=== PATIENT | female | born 1955 | race Caucasian/White ===

== ENCOUNTER 2019-11-29 12:17 | Day surgery (SDC) | payer OTHER ==
[~2019-11-29] VITALS: Ht 167.6 cm; Wt 63.3 kg
[~2019-11-29 12:17] MED LIST: ACYC400; ADAL40PEN; ETOD400; LEVSOD88; PARO20
--- NOTE | 2019-11-29 14:31 | NUR ---
11/29/19 1431 [place] [place] 30 ML NACL INJECTED FOR POLYP REMOVAL.
== END 2019-11-29 14:27 | disposition home or self-care (01) ==
LOC: ORSCSDS 12:17
PROVIDERS: Internal Medicine Gastroenterology
PROC: 0DBK8ZX Excision of Ascending Colon, Via Natural or Artificial Opening Endoscopic, Diagnostic (ICD-10-PCS; principal; 2019-11-29 13:30)
PROC: 0DBH8ZX Excision of Cecum, Via Natural or Artificial Opening Endoscopic, Diagnostic (ICD-10-PCS; principal; 2019-11-29 13:30)
DX: Z12.11 Encounter for screening for malignant neoplasm of colon (principal); Z86.010 Personal history of colon polyps; D12.0 Benign neoplasm of cecum; D12.2 Benign neoplasm of ascending colon; K57.30 Diverticulosis of large intestine without perforation or abscess without bleeding; K64.8 Other hemorrhoids; E03.9 Hypothyroidism, unspecified; Z79.899 Other long term (current) drug therapy
CPT/HCPCS: 88305; J2405; J2704; J7120

== ENCOUNTER → 2021-12-08 | Outpatient (CLI) | payer MEDICARE ==
[2021-12-08 15:22] LABS: BASOPHILS ABSOLUTE AUTO 0.06 K/mm3 (0.00-0.23); BASOPHILS PERCENT AUTO 1 % (0-2); EOSINOPHILS ABSOLUTE AUTO 0.16 K/mm3 (0.00-0.68); EOSINOPHILS PERCENT AUTO 1 % (0-6); Hematocrit 42.2 % (33.0-51.0); Hemoglobin 14.4 g/dL (11.5-16.0); IMMATURE GRAN ABSOLUTE AUTO 0.03 K/mm3 (0.00-0.10); IMMATURE GRAN PERCENT AUTO 0 % (0-1); LYMPHOCYTES ABSOLUTE AUTO 2.55 K/mm3 (0.84-5.20); LYMPHOCYTES PERCENT AUTO 21 % (21-46); MONOCYTES ABSOLUTE AUTO 0.95 K/mm3 (0.16-1.47); MONOCYTES PERCENT AUTO 8 % (4-13); Mean Corpuscular HGB 31.7 pg (26.0-34.0); Mean Corpuscular HGB Conc 34.1 g/dL (31.5-36.5); Mean Corpuscular Volume 93 fL (80-100); Mean Platelet Volume 10.9 fL (9.1-12.4); NEUTROPHILS ABSOLUTE AUTO 8.36 K/mm3 (1.96-9.15); NEUTROPHILS PERCENT AUTO 69 % (41-73); Platelet Count 305 K/mm3 (150-400); RDW Coefficient Variation 13.7 % (11.7-14.2); RDW Standard Deviation 46.5 fL (35.1-46.3); Red Blood Cell Count 4.54 M/mm3 (3.80-5.20); White Blood Cell Count 12.11 K/mm3 (4.00-11.30)
[2021-12-08 15:33] LABS: Albumin, Blood 3.4 g/dL (3.4-5.0); Albumin/Globulin Ratio 0.8 (0.8-1.8); Bilirubin, Total 0.5 mg/dL (0.1-1.0); Bun/Creatinine Ratio 23.9 (12.0-20.0); Calcium, Blood 9.2 mg/dL (8.5-10.1); Creatinine, Blood 0.88 mg/dL (0.40-1.00); Globulin, Blood 4.1 g/dL (2.2-4.0); Potassium, Blood 3.8 mmol/L (3.5-5.5); Total Protein, Blood 7.5 g/dL (6.4-8.2)
== END | disposition home or self-care (01) ==
LOC: LAB SHORT 15:17 → LAB 15:17
PROVIDERS: Family Medicine
DX: R10.32 Left lower quadrant pain (principal)
CPT/HCPCS: 80053; 83690; 85025

== ENCOUNTER → 2022-04-21 | Outpatient (CLI) | payer MEDICARE | END | disposition home or self-care (01) | LOC: LAB SHORT 16:00 | DX: K52.9 Noninfective gastroenteritis and colitis, unspecified (principal) | CPT/HCPCS: 87015; 87045; 87046; 87205; 87899 ==

== ENCOUNTER 2022-06-01 06:12 | Day surgery (SDC) | payer MEDICARE ==
[~2022-06-01] VITALS: Ht 167.6 cm; Wt 62.5 kg
[~2022-06-01 06:12] MED LIST changes: +CALCIUM CITRATE PO; +CYCL10 PO; +ETOD500 PO; +EUTHYROX88 MCG PO; +PARO20 PO; +RENFLEXIS100 M1 IV
--- NOTE | 2022-06-01 06:45 | NUR ---
Ambulatory in Day Surgery Surgical site prepped with 2% Chlorhexidine cloth wipe. History, Chart, Medications and Allergies reviewed before start of procedure.Lungs clear T/O to Auscultation. Patient confirms NPO status and agrees with scheduled surgery.
--- NOTE | 2022-06-01 09:02 | NUR ---
06/01/22 0902 Chris Jorgensen I PATIENT RECEIVED VANCO 1GM IN THE PREOP SETTING PRIOR TO ARRIVING IN THE OR.
--- NOTE | 2022-06-01 11:33 | NUR ---
ARRIVED FROM PACU VIA BED, AWAKE, A&OX4, DENIES ANY NEED FOR PAIN MEDS AT THIS TIME, DENIES ANY NAUSEA, TXA STARTED, ORIENTED TO ROOM AND CALL LIGHT USE, CLEAR LIQUIDS GIVEN, CONT. TO MONITOR FOR ANY CHANGES.
--- NOTE | 2022-06-01 14:12 | NUR ---
PT'S SATS DECREASED TO TH 70'S AFTER LUNCH, HAS 2L O2 IN PLACE VIA NC , PT WAS NOTED SNORING W/ SHORT PAUSES IN BETWEEN, PT PLACED ON 10L NRB, RT PAGED TO EVAL PT, PLACED ON CONT. OXIMETRY AND 2L O2 VIA NC, PT CURRENTLY SLEEPING, SATS 94-95%, CONT TO MONITOR FOR ANY CHANGES.
--- NOTE | 2022-06-01 17:05 | NUR ---
S/P L JUAN TODAY, PT HAS BEEN DROWSY AND SLEEPY, SLEPT MOST OF THE AFTERNOON, AWAKENS EASILY, PT ON 2L NC, 94-95% WHILE SLEEPING, PT JUST WOKE UP, ASSISTED TO AMBULATE TO THE BATHROOM W/ 1 PERSON ASSIST, TOLERATED WELL, REPORT GIVEN TO ABNER MCKEON.
--- NOTE | 2022-06-01 19:25 | NUR ---
PATIENT IS A&OX4. PAIN HAS BEEN MANAGED WITH TORADOL IV AND TYLENOL. HER LEFT HIP WITH FOAM TAPE AND GAUZE ARE C/D/I. DENIES NUMBNESS OR TINGLING IN ALL EXTREMITIES. SHE IS A SBA WITH FWW AND GAIT BELT. SHE IS VOIDING AND TOLERATING PO INTAKE. CALLS APPROPRIATELY. PATIENT IS LAYING IN BED WITH CALL LIGHT IN REACH.
[2022-06-02 04:43] LABS: BASOPHILS ABSOLUTE AUTO 0.02 K/mm3 (0.00-0.23); BASOPHILS PERCENT AUTO 0 % (0-2); EOSINOPHILS ABSOLUTE AUTO 0.01 K/mm3 (0.00-0.68); EOSINOPHILS PERCENT AUTO 0 % (0-6); Hematocrit 32.7 % (33.0-51.0); Hemoglobin 10.8 g/dL (11.5-16.0); IMMATURE GRAN ABSOLUTE AUTO 0.06 K/mm3 (0.00-0.10); IMMATURE GRAN PERCENT AUTO 1 % (0-1); LYMPHOCYTES ABSOLUTE AUTO 1.58 K/mm3 (0.84-5.20); LYMPHOCYTES PERCENT AUTO 16 % (21-46); MONOCYTES ABSOLUTE AUTO 0.87 K/mm3 (0.16-1.47); MONOCYTES PERCENT AUTO 9 % (4-13); Mean Corpuscular HGB 30.4 pg (26.0-34.0); Mean Corpuscular Volume 92 fL (80-100); Mean Platelet Volume 11.1 fL (9.1-12.4); NEUTROPHILS ABSOLUTE AUTO 7.39 K/mm3 (1.96-9.15); NEUTROPHILS PERCENT AUTO 74 % (41-73); Platelet Count 218 K/mm3 (150-400); RDW Coefficient Variation 13.8 % (11.7-14.2); RDW Standard Deviation 47.3 fL (35.1-46.3); Red Blood Cell Count 3.55 M/mm3 (3.80-5.20); White Blood Cell Count 9.93 K/mm3 (4.00-11.30)
[2022-06-02 05:07] LABS: Bun/Creatinine Ratio 23.4 (12.0-20.0); Calcium, Blood 8.4 mg/dL (8.5-10.1); Creatinine, Blood 0.81 mg/dL (0.40-1.00); Magnesium, Blood 2.1 mg/dL (1.6-2.4); Potassium, Blood 4.1 mmol/L (3.5-5.5)
--- NOTE | 2022-06-02 05:13 | NUR ---
SHIFT SUMMARY POD1 LEFT TOTAL HIP. DRESSING IS C/D/I, SENSATION AND CIRCULATION REMAIN INTACT. VSS. PT SLEPT WELL T/O THE NIGHT. MEDICATED FOR PAIN WITH SCHEDULED AND PRN'S. PT WAS ABLE TO AMBULATE MULTIPLE TIMES TO THE BATHROOM, VOIDING W/O DIFFICULTY. TOLLERATING PO INTAKE W/O N/V. PLAN FOR PT TO WORK WITH PT AND D/C HOME TODAY. NO ACUTE EVENTS T/O THE NIGHT. THE PATIENT IS SLEEPING, IN NO DISTRESS, CALL LIGHT IN REACH.
[2022-06-02] MEDS ORDERED: ASPI81CH PO (10:33)
[2022-06-02] MEDS ORDERED: OXAYDO5 M1 PO (10:34)
[2022-06-02] MEDS ORDERED: PROM25 PO (10:35)
[2022-06-02] MEDS ORDERED: SULTRIDS PO (10:35)
--- NOTE | 2022-06-02 14:30 | NUR ---
DISCHARGE PT PROVIDED WITH WRITTEN AND VERBAL DISCHARGE INSTRUCTIONS, SHE REPORTED UNDERSTANDING. PT CLEARED THERAPY, PAIN MANAGED, PT ABLE TO VOID PRIOR TO DISCHARGE. VSS AT TIME OF DISCHARGE. PT ASSISTED OUT IN W/C AT 1324. CLEAN DRESSINGS PROVIDED. MEDICATIONS FAXED TO [facility] PER PT REQUEST.
== END 2022-06-02 13:30 | disposition home or self-care (01) ==
LOC: ORSCMMR 06:12 → ORD 07:30 → SURS 10:43 → ORSCMMR 06-02 13:30
PROVIDERS: Orthopaedic Surgery
PROC: 0SRB0JA Replacement of Left Hip Joint with Synthetic Substitute, Uncemented, Open Approach (ICD-10-PCS; principal; 2022-06-01 07:30)
DX: M16.12 Unilateral primary osteoarthritis, left hip (principal); M41.9 Scoliosis, unspecified; E03.9 Hypothyroidism, unspecified; F41.9 Anxiety disorder, unspecified; Z79.899 Other long term (current) drug therapy
CPT/HCPCS: 36415; 72170; 80048; 83735; 85025; 94762; 97110; 97116; 97162; 97165; 97530; 97535; A9270; C1713; C1776; J0171; J0690; J0735; J1100; J1885; J2250; J2405; J2704; J2795; J3010; J3370; J7120

== ENCOUNTER → 2022-07-14 | Outpatient (CLI) | payer MEDICARE ==
[~2022-07-14] MED LIST changes: +ASPI81CH PO; +OXAYDO5 M1 PO; +PROM25 PO; +SULTRIDS PO
== END | disposition home or self-care (01) ==
LOC: LAB 09:00 → LAB SHORT 09:00
PROVIDERS: Physician Assistant Medical
DX: R19.7 Diarrhea, unspecified (principal); K21.9 Gastro-esophageal reflux disease without esophagitis
CPT/HCPCS: 87338

== ENCOUNTER 2023-03-23 10:08 | Day surgery (SDC) | payer MEDICARE ==
[~2023-03-23] VITALS: Ht 167.6 cm; Wt 60.8 kg
[2023-03-23] MEDS ORDERED: ERGO400 (10:28)
[2023-03-23 13:07] VITALS: BP 115/66
== END 2023-03-23 13:25 | disposition home or self-care (01) ==
LOC: ORSCSDS 10:08
PROVIDERS: Internal Medicine Gastroenterology
PROC: 0DBE8ZX Excision of Large Intestine, Via Natural or Artificial Opening Endoscopic, Diagnostic (ICD-10-PCS; principal; 2023-03-23 11:30)
PROC: 0DB98ZX Excision of Duodenum, Via Natural or Artificial Opening Endoscopic, Diagnostic (ICD-10-PCS; principal; 2023-03-23 11:30)
DX: R19.7 Diarrhea, unspecified (principal); K21.9 Gastro-esophageal reflux disease without esophagitis; Z86.010 Personal history of colon polyps; E05.00 Thyrotoxicosis with diffuse goiter without thyrotoxic crisis or storm; Z79.899 Other long term (current) drug therapy; F41.9 Anxiety disorder, unspecified
CPT/HCPCS: 88305; J2704; J7120

== ENCOUNTER → 2024-11-10 | Outpatient (CLI) | payer MEDICARE ==
[~2024-11-10] MED LIST changes: +ERGO400
[2024-11-13 17:53] LABS: LACTOFERRIN,FECAL BY ELISA Positive (Negative)
== END | disposition home or self-care (01) ==
LOC: LAB SHORT 07:52 → LAB 07:52
PROVIDERS: Family Medicine
DX: K52.9 Noninfective gastroenteritis and colitis, unspecified (principal); L40.50 Arthropathic psoriasis, unspecified; E03.9 Hypothyroidism, unspecified; R73.9 Hyperglycemia, unspecified; Z79.899 Other long term (current) drug therapy
CPT/HCPCS: 83630; 87015; 87045; 87046; 87205; 87899

== ENCOUNTER 2024-12-25 07:26 | Day surgery (SDC) | payer MEDICARE ==
[~2024-12-25] VITALS: Ht 167.6 cm; Wt 56.9 kg
[2024-12-25] MEDS ORDERED: CALCIUM LACTAT100 M1 (07:59)
[2024-12-25] MEDS ORDERED: [UNRECOGNIZED DRUG - OTHER] (07:59)
[2024-12-25] MEDS ORDERED: BACL10 (08:01)
[2024-12-25] MEDS ORDERED: DICL75ER (08:01)
[2024-12-25 10:08] VITALS: BP 122/69
== END 2024-12-25 10:09 | disposition home or self-care (01) ==
LOC: ORSCSDS 07:26
PROVIDERS: Internal Medicine Gastroenterology
PROC: 0DBE8ZX Excision of Large Intestine, Via Natural or Artificial Opening Endoscopic, Diagnostic (ICD-10-PCS; principal; 2024-12-25 08:45)
DX: R19.7 Diarrhea, unspecified (principal); Z86.0101 Personal history of adenomatous and serrated colon polyps; K57.30 Diverticulosis of large intestine without perforation or abscess without bleeding; E05.00 Thyrotoxicosis with diffuse goiter without thyrotoxic crisis or storm; L40.50 Arthropathic psoriasis, unspecified; Z79.899 Other long term (current) drug therapy
CPT/HCPCS: 88305; J2704; J7120